=== PATIENT | male | born 1975 | race Caucasian/White ===

== ENCOUNTER 2020-07-31 11:03 | Outpatient (REF) | payer OTHER, SELFPAY | END 2020-07-31 11:04 | disposition home or self-care (01) | LOC: HO.LAB 11:03 | PROVIDERS: Visit Provider Internal Medicine | DX: Z20.828 Contact with and (suspected) exposure to other viral communicable diseases (principal) | CPT/HCPCS: C9803; U0003 ==

== ENCOUNTER 2021-02-13 09:37 | Emergency (ER) | payer OTHER, SELFPAY ==
--- NOTE | ~2021-02-13 | CT_ITS ---
EXAMINATION: CT ANGIOGRAM OF THE CHEST WITH AND WITHOUT CONTRAST (CT PULMONARY ANGIOGRAM FOR PE) CLINICAL INFORMATION: Hemoptysis with elevated d dimer COMPARISON: Chest radiograph dated 02/13/2021. TECHNIQUE: Prior to contrast administration, noncontrast localization images were obtained. Subsequently, multidetector volumetric imaging was performed from the thoracic inlet to below the diaphragms following the administration of 65 mL Omnipaque 350 intravenous contrast. No contrast reaction reported Sagittal, coronal, and MIP oblique sagittal reformatted images were obtained on the CT workstation, uploaded to PACS, and reviewed. This CT examination was performed using dose optimization techniques as appropriate, variously including the following: *Automated exposure control *Adjustment of mA and/or kV according to patient size (this includes techniques or standardized protocols for targeted exams where dose is matched to indication/reason for exam; i.e. extremities or head) *Use of iterative reconstruction technique Total exam dose-length product 412 mGy-cm FINDINGS: QUALITY OF STUDY/CONTRAST BOLUS: Satisfactory. PULMONARY ARTERIES: No central or segmental pulmonary emboli. THORACIC AORTA: No aneurysm or dissection. LUNGS/PLEURA/AIRWAYS: Mild biapical scarring and subpleural cystic changes. No significant/suspicious pulmonary nodules. Mild dependent atelectasis in the lower lobes. Mild linear atelectasis versus scarring in the right middle lobe and lingula. There are no pleural effusions. The airways are patent. MEDIASTINUM: The visualized thyroid gland is unremarkable. Normal heart size. No pericardial effusion. No hilar or mediastinal lymphadenopathy. No evidence of septal bowing or right heart strain. CHEST WALL/AXILLA: No axillary or internal mammary lymphadenopathy. Mild asymmetric gynecomastia in the left breast. OSSEOUS STRUCTURES: No acute or suspicious osseous abnormality. UPPER ABDOMEN: Diffuse decreased hepatic attenuation without focal abnormality. Calcified gallstone measuring 1.5 cm (image 56, series 6). CT/CT angio chest PE protocol IMPRESSION: 1. No evidence for pulmonary embolism. 2. No acute cardiopulmonary process. 3. Hepatic steatosis. 4. Cholelithiasis without evidence for acute cholecystitis. 5. Mild asymmetric gynecomastia on the left. Correlate with physical exam. VTE: negative
--- NOTE | ~2021-02-13 | XR_ITS ---
EXAMINATION: XR CHEST CLINICAL INFORMATION: Coughing up blood COMPARISON: None TECHNIQUE: Frontal view of the chest was obtained. FINDINGS: Cardiac silhouette is normal in size. The lungs are well aerated. There is no lobar consolidation. No pleural effusion or pneumothorax. No gross osseous abnormality. XR/XR chest 1V IMPRESSION: No acute pulmonary pathology.
[2021-02-13 10:02] VITALS: BP 169/93; PULSE 74; RESP 16; TEMP 36.7; O2SAT 98; BMI 27.1
--- NOTE | 2021-02-13 10:33 | ED_ITS ---
HPI - General Adult General Chief complaint: General Medical Stated complaint: throat pain Time Seen by Provider: 02/13/21 10:03 Source: patient Mode of arrival: ambulatory Limitations: no limitations History of Present Illness HPI narrative: Patient is a 45-year-old male with no significant past medical history who presents with bloody sputum and a sore throat x2 days. Patient states he has had a slight cough, nonproductive. 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 Patient denies any calf pain, long travel or periods of being sedentary, active cancer or family history of DVT or PE or family history of coagulopathy. Patient denies any fevers nausea vomiting or diarrhea. Denies any sick contacts. Patient does admit to drinking 3-4 alcoholic drinks per day, 3-4 days per week, maybe a little bit more on the weekends. Related Data Allergies Allergy/AdvReac Type Severity Reaction Status Date / Time No Known Allergies Allergy Verified 02/13/21 10:01 Review of Systems Review of Systems: Yes all other systems are reviewed and are negative [facility] Past Medical History Medical History No known health problems Social History Social History Advance Directives: No Advance Directives Information Provided: No Physical Exam Vital Signs: Vital Signs: Last Vital Signs Temp 99.1 F 02/13/21 12:09 Pulse 72 02/13/21 12:09 Resp 17 02/13/21 12:09 BP 115/68 02/13/21 12:09 Pulse Ox 100 02/13/21 12:09 Body Mass Index 27.1 Const: General: cooperative, healthy appearing, comfortable, well developed and anxious Orientation/consciousness: patient oriented x3 Limitations: no limitations HENMT: Head: Yes normal to inspection Mouth: Normal oral and palatal mucosa present, lip normal and tongue normal Throat: Yes tonsils normal, Yes uvula midline and Yes posterior oropharynx abnormal (Erythema) Eyes: General: appearance normal, both eyes and all related structures Neck: Neck: Yes normal visual inspection and Yes full ROM Resp: Effort & Inspection: normal respiratory effort and able to speak in complete sentences Auscultation: clear to auscultation bilaterally Cardio: Rate: regular rate Rhythm: regular rhythm Heart sounds: normal S1 and S2 GI: Inspection: Yes normal to inspection Skin: General skin exam: no rashes or lesions noted Neuro: General: patient oriented x3 Extrem: General: Yes normal to inspection, Yes no pedal edema and Yes no calf tenderness Psych: Appearance: grossly normal Course Course Course Narrative: Patient is a 45-year-old male with no significant past medical history who presents with bloody sputum and a sore throat x2 days. Patient states he has had a slight cough, nonproductive. 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 Vital signs are stable sans an elevated blood pressure of 169/93. Physical exam reveals erythematous throat, patient very anxious. Will get chest x-ray basic labs including D-dimer as cannot PERC patient out because he has had bloody sputum. Will also test for mono and strep throat. Reevaluation(s) Reevaluation #1: D-dimer elevated at 372, will get CTA. Time: 10:48 Reevaluation #2: Chest x-ray negative CTA negative for PE, did show fatty liver and cholelithiasis without acute cholecystitis. Labs within normal limit, COVID negative, likely allergies. Patient's blood pressure has come down to 115/68 so all vital signs are now normal. Questionable Karrie-Bowens tear but H&H is stable. Will advise to start taking an allergy med every day and if bloody sputum continues to follow-up with PCP for endoscopy. Time: 13:26 Medical Decision Making Lab Data Result diagrams: 02/13/21 10:34 02/13/21 10:34 Labs: Lab Results 02/13/21 02/13/21 02/13/21 Range/Units 10:33 10:33 10:34 WBC 5.6 (4.8-10.8) X10*3/uL RBC 4.94 (4.60-5.80) X10*6/uL Hgb 15.3 (14.0-18.0) g/dl Hct 43.8 (42-52) % MCV 88.7 (80-98) fL MCH 31.0 (27.0-33.0) pg MCHC 34.9 (31.0-36.0) g/dl RDW 11.8 (11.0-16.0) % Plt Count 227 (160-400) X10*3/uL MPV 10.3 (9.4-12.4) fL Absolute Nucleated RBC 0.000 (0.0-0.012) X10*3/uL Nucleated RBC % (auto) 0.0 (0.0-0.2) /100WBC Neutrophils % (Manual) 58 (45-73) % Band Neutrophils % 0 L (3-5) % Lymphocytes % (Manual) 34 (20-40) % Monocytes % (Manual) 6 (2-11) % Eosinophils % (Manual) 2 (0-4) % Abs Neuts (Manual) 3.2 (2.2-7.9) X10*3/uL Lymphocytes # (Manual) 1.9 (0.6-4.8) X10*3/uL Monocytes # (Manual) 0.3 (0.0-1.2) X10*3/uL Eosinophils # (Manual) 0.1 (0.0-0.8) X10*3/UL Platelet Estimate NORMAL (NORMAL) Plt Morphology Comment NORMAL RBC Morphology NORMAL D-Dimer 372 NG/ML Sodium (135-145) mmol/L Potassium (3.3-5.1) mmol/L Chloride (96-108) mmol/L Carbon Dioxide (22-29) mmol/L Anion Gap (12-20) BUN (9-16) mg/dL Creatinine (0.5-1.4) mg/dL Estim Creat Clear Calc Estimated GFR Random Glucose (60-115) mg/dL Calcium (8.4-10.2) mg/dL Total Bilirubin (0.0-1.0) mg/dL AST (5-37) U/L ALT (0-40) U/L Alkaline Phosphatase (39-117) U/L Total Protein (6.5-8.0) g/dL Albumin (3.5-5.0) g/dL COVID-19 (MIN) (Negative) COVID-19 Clin Com Monoscreen Negative (Negative) 02/13/21 02/13/21 Range/Units 10:34 12:07 WBC (4.8-10.8) X10*3/uL RBC (4.60-5.80) X10*6/uL Hgb (14.0-18.0) g/dl Hct (42-52) % MCV (80-98) fL MCH (27.0-33.0) pg MCHC (31.0-36.0) g/dl RDW (11.0-16.0) % Plt Count (160-400) X10*3/uL MPV (9.4-12.4) fL Absolute Nucleated RBC (0.0-0.012) X10*3/uL Nucleated RBC % (auto) (0.0-0.2) /100WBC Neutrophils % (Manual) (45-73) % Band Neutrophils % (3-5) % Lymphocytes % (Manual) (20-40) % Monocytes % (Manual) (2-11) % Eosinophils % (Manual) (0-4) % Abs Neuts (Manual) (2.2-7.9) X10*3/uL Lymphocytes # (Manual) (0.6-4.8) X10*3/uL Monocytes # (Manual) (0.0-1.2) X10*3/uL Eosinophils # (Manual) (0.0-0.8) X10*3/UL Platelet Estimate (NORMAL) Plt Morphology Comment RBC Morphology D-Dimer NG/ML Sodium 137 (135-145) mmol/L Potassium 4.5 (3.3-5.1) mmol/L Chloride 105 (96-108) mmol/L Carbon Dioxide 21 L (22-29) mmol/L Anion Gap 16 (12-20) BUN 8 L (9-16) mg/dL Creatinine 0.81 (0.5-1.4) mg/dL Estim Creat Clear Calc 129.0 Estimated GFR > 60 Random Glucose 94 (60-115) mg/dL Calcium 9.3 (8.4-10.2) mg/dL Total Bilirubin 0.8 (0.0-1.0) mg/dL AST 24 (5-37) U/L ALT 51 H (0-40) U/L Alkaline Phosphatase 39 (39-117) U/L Total Protein 7.1 (6.5-8.0) g/dL Albumin 4.2 (3.5-5.0) g/dL COVID-19 (MIN) Negative (Negative) COVID-19 Clin Com See Note Monoscreen (Negative)
[2021-02-13 10:40] LABS: Baso%MD 0.4 %; Eos%MD 4.1 %; Hematocrit 43.8 % (42-52); Hemoglobin 15.3 g/dl (14.0-18.0); IG%MD 0.4 %; Mean Corpuscular HGB Conc 34.9 g/dl (31.0-36.0); Mean Corpuscular Volume 88.7 fL (80-98); Mean Platelet Volume 10.3 fL (9.4-12.4); Mono%MD 10.5 %; Neut%MD 57.6 %; Platelet Count 227 X10*3/uL (160-400); Red Blood Count 4.94 X10*6/uL (4.60-5.80); Red Cell Distribution Width 11.8 % (11.0-16.0); White Blood Count 5.6 X10*3/uL (4.8-10.8)
[2021-02-13 10:50] LABS: D Dimer 372 NG/ML
[2021-02-13 11:01] LABS: Alanine Aminotransferase 51 U/L (0-40); Albumin Level 4.2 g/dL (3.5-5.0); Alkaline Phosphatase 39 U/L (39-117); Anion Gap 16 (12-20); Aspartate Amino Transferase 24 U/L (5-37); Bilirubin Total 0.8 mg/dL (0.0-1.0); Blood Urea Nitrogen 8 mg/dL (9-16); Calcium 9.3 mg/dL (8.4-10.2); Carbon Dioxide 21 mmol/L (22-29); Chloride 105 mmol/L (96-108); Estimated Glomerular Filt Rate > 60; Glucose Random 94 mg/dL (60-115); Potassium 4.5 mmol/L (3.3-5.1); Sodium 137 mmol/L (135-145); Total Protein 7.1 g/dL (6.5-8.0)
[2021-02-13 11:02] LABS: Monotest Negative (Negative)
[2021-02-13 11:36] LABS: Band Neutrophils Percent 0 % (3-5); Eosinophils Absolute Manual 0.1 X10*3/UL (0.0-0.8); Eosinophils Percent Manual 2 % (0-4); Lymphocytes Absolute Manual 1.9 X10*3/uL (0.6-4.8); Lymphocytes Percent Manual 34 % (20-40); Monocytes Absolute Manual 0.3 X10*3/uL (0.0-1.2); Monocytes Percent Manual 6 % (2-11); Neutrophils Absolute Manual 3.2 X10*3/uL (2.2-7.9); Neutrophils Percent Manual 58 % (45-73); RBC Morphology NORMAL
[2021-02-13 11:37] LABS: Platelet Estimate NORMAL (NORMAL); Platelet Morphology Comment NORMAL
[2021-02-13 12:09] VITALS: BP 115/68; PULSE 72; RESP 17; TEMP 37.3; O2SAT 100
[2021-02-13 12:31] LABS: COVID-19 Test Negative (Negative); IDNOW Serial# 9DD0AD1C
[2021-02-13] MEDS: iohexoL 350 MG/ML 100 ML INFUS..BTL 65 ML IV (12:33)
[2021-02-13 14:02] LABS: IDNOW Serial# 9DD0AD1C; Strep A Nucleic Acid Negative (Negative)
== END 2021-02-13 14:12 | disposition home or self-care (01) ==
PROVIDERS: Physician Assistant; Emergency Provider Emergency Medicine Emergency Medical Services
DX: J02.9 Acute pharyngitis, unspecified (principal); R04.2 Hemoptysis; K80.20 Calculus of gallbladder without cholecystitis without obstruction; Z20.822 Contact with and (suspected) exposure to COVID-19
CPT/HCPCS: 36415; 71045; 71275; 80053; 85007; 85027; 85379; 86308; 87635; 87651; 99284; Q9967